=== PATIENT | female | born 1965 | race Caucasian/White ===

== ENCOUNTER → 2017-05-04 | Outpatient (CLI) | payer OTHER ==
[~2017-05-04] MED LIST: ACETAMINOPHEN PO; ALBUTEROL MININEB NEB; BAZA PROTECT CR57 GM TOP; CALCIMAR200 IU/ML; CARMEX TOP; CENTRUM PO; DEEP SEA NASAL; DIASTAT ACDL; DIASTAT ACUDIAL1 KIT; ECOTRIN81 M1 PO; HYDROXYZINE HCL25 M1 PO; KEPPRA PO; KEPPRA750 MG PO; LACTULOSE10 G/15 M4 PO; LACTULOSE10 G/15 ML PO; LAMICTAL PO; LEVETIRACETAM; LOPRESSOR PO; METOCLOPRAMIDE PO; METROGEL 1% TOP; MEVACOR10 MG PO; MIRALAX255 GM PO; NASONEX17 GM; NEXIUM20 MG; NITROGLYCERIN0.4 MG; NITROGYLCERIN SUBLINGUAL; PATIENT'S PHARMACY; PRILOSEC PO; SENNA CONCENTR8.6 MG; SOD BICARBONATE PO; TOPAMAX PO; TRILEPTAL PO; VIMPAT100 MG PO; VIMPAT150 MG PO; VIT D PO; VITAMIN D PO; ZANTAC15 MG/M1 PO; ZETIA PO; ZYRTEC PO; [UNRECOGNIZED DRUG - OTHER]; [UNRECOGNIZED DRUG - OTHER] PO; [UNRECOGNIZED DRUG - OTHER] PO; [UNRECOGNIZED DRUG - OTHER] TOP
== END | disposition home or self-care (01) ==
LOC: CSSDAY 10:00
DX: M81.0 Age-related osteoporosis without current pathological fracture (principal)
CPT/HCPCS: 96372; J0897

== ENCOUNTER → 2017-05-26 | Outpatient (CLI) | payer OTHER ==
--- NOTE | ~2017-05-26 | US17 ---
[facility] RADIOLOGY TEXT RESULTS PATIENT: DANYEL LEE LOCATION: [facility] : 61 UNIT #: [id number] AGE: [address]: Gabriele Gonzalez MD SEX: F ORDER DR: [id number] [facility] [address] [place], [place] [address] [id number] O MR#: [id number] Acc #: [id number] NAME: DANYEL LEE. : 1965 SEX: F STUDY DATE/TIME: 05/26/2017 14:13 UNIT: [facility]US ROOM: STUDY DESCRIPTION: US Breast Bilateral Attending Physician: Gabriele Gonzalez Sr., M.D. Referring Physician: Gabriele Gonzalez Sr., M.D. Ordering Physician: Gabriele Gonzalez Sr., M.D. Primary Care Physician: Gabriele Gonzalez Sr., M.D. MEDICAL IMAGING REPORT This report is preliminary unless electronic signature is present EXAMINATION Bilateral screening breast ultrasound. DATE 05/26/2017 HISTORY 51-year-old female with history of mental retardation. [place] resident. Bilateral breast screening requested. COMPARISON Bilateral screening breast ultrasound 04/29/2016, 01/22/2015, 08/20/2013, 11/15/2012. FINDINGS Sonographic imaging was obtained of each breast for purposes of screening. Imaging was performed in clockwise fashion with index images submitted online. Limited screening protocol imaging of each breast demonstrates no suspicious cystic or solid abnormalities. No architectural distortion microcalcification is seen. IMPRESSION 1. BIRADS 1. Negative exam. Limited bilateral ultrasound screening demonstrates no suspicious findings. Patients over the age of 40 are entered into a reminder system with target due date for the next mammogram. A result letter will also be sent to the patient. BIRADS: 1 Negative. [facility] RADIOLOGY TEXT RESULTS PATIENT: DANYEL LEE LOCATION: [facility] : 61 UNIT #: [id number] AGE: [address]: Gabriele Gonzalez MD SEX: F ORDER DR: Dictated by... Marybeth Farrell M.D. THIS IS AN ELECTRONICALLY VERIFIED REPORT Marbyeth Farrell M.D. at 05/28/2017 7:46 PM ABDULLAHI/travis TD: 05/28/2017 07:11 JOB #: [id number] MEDICAL IMAGING REPORT Page 1 of 1 COPY
== END | disposition home or self-care (01) ==
LOC: CGUS 13:19
DX: Z12.39 Encounter for other screening for malignant neoplasm of breast (principal); F73 Profound intellectual disabilities; G40.409 Other generalized epilepsy and epileptic syndromes, not intractable, without status epilepticus; E78.00 Pure hypercholesterolemia, unspecified; Z93.1 Gastrostomy status
CPT/HCPCS: 76641